=== PATIENT | female | born 1940 | race Caucasian/White ===

== ENCOUNTER 2020-08-05 13:20 | Outpatient (CLI) | payer OTHER | END 2020-08-05 13:22 | disposition home or self-care (01) | LOC: NUCLEAR 13:20 | PROVIDERS: ATTEND Orthopaedic Surgery | DX: M81.0 Age-related osteoporosis without current pathological fracture (principal) ==

== ENCOUNTER 2020-09-09 11:15 | Outpatient (CLI) | payer OTHER | END 2020-09-09 11:16 | disposition home or self-care (01) | LOC: LAB 11:15 | PROVIDERS: ATTEND Orthopaedic Surgery | DX: E21.3 Hyperparathyroidism, unspecified (principal); M81.8 Other osteoporosis without current pathological fracture ==

== ENCOUNTER 2021-01-27 09:02 | Outpatient (CLI) | payer OTHER | END 2021-01-27 09:05 | disposition home or self-care (01) | LOC: NUCLEAR 09:02 | PROVIDERS: ATTEND Internal Medicine Cardiovascular Disease | DX: I20.1 Angina pectoris with documented spasm (principal) | CPT/HCPCS: 78452; 93017; A9500; J0153 ==

== ENCOUNTER 2021-08-24 08:00 | Outpatient (CLI) | payer OTHER | END 2021-08-24 08:30 | disposition home or self-care (01) | LOC: PPH VACUNA 08:00 | PROVIDERS: ATTEND Emergency Medicine Pediatric Emergency Medicine | DX: Z23 Encounter for immunization (principal) ==

== ENCOUNTER 2021-08-24 10:06 | Outpatient (CLI) | payer OTHER | END 2021-08-24 10:15 | disposition home or self-care (01) | LOC: MAMO-SONO 10:06 | PROVIDERS: ATTEND Family Medicine | DX: Z12.39 Encounter for other screening for malignant neoplasm of breast (principal); N64.4 Mastodynia ==

== ENCOUNTER 2023-04-28 08:29 | Outpatient (CLI) | payer OTHER ==
[2023-04-28 10:39] LABS: ALBUMIN 3.7 gm/dL (3.4-5.0); BILIRUBIN TOTAL 0.57 mg/dL (0.3-1.2); CALCIUM 9.1 mg/dL (8.5-10.1); CREATININE SERUM 0.93 mg/dL (0.55-1.02); GFR 57.86; GLOBULINA 2.9 G/DL (2.4-3.5); MAGNESIUM 2.1 mg/dL (1.8-2.4); PHOSPHOROUS 3.4 mg/dL (2.5-4.9); POTASSIUM 4.13 mEq/L (3.5-5.1); TOTAL PROTEIN 6.6 gm/dL (6.4-8.2)
== END 2023-04-28 08:30 | disposition home or self-care (01) ==
LOC: LAB 08:29
PROVIDERS: ATTEND Orthopaedic Surgery
DX: M85.9 Disorder of bone density and structure, unspecified (principal); E83.42 Hypomagnesemia; E56.1 Deficiency of vitamin K; E88.89 Other specified metabolic disorders; M81.8 Other osteoporosis without current pathological fracture

== ENCOUNTER 2023-07-05 07:49 | Outpatient (CLI) | payer OTHER | END 2023-07-05 07:50 | disposition home or self-care (01) | LOC: NUCLEAR 07:49 | DX: I73.9 Peripheral vascular disease, unspecified (principal); I87.2 Venous insufficiency (chronic) (peripheral) ==

== ENCOUNTER 2023-07-10 08:18 | Outpatient (CLI) | payer OTHER | END 2023-07-10 08:19 | disposition home or self-care (01) | LOC: NUCLEAR 08:18 | PROVIDERS: ATTEND Specialist | DX: I73.9 Peripheral vascular disease, unspecified (principal); I87.2 Venous insufficiency (chronic) (peripheral) ==

== ENCOUNTER 2023-07-10 10:05 | Outpatient (CLI) | payer OTHER | END 2023-07-10 10:11 | disposition home or self-care (01) | LOC: RAD 10:05 | PROVIDERS: ATTEND Orthopaedic Surgery | DX: M25.571 Pain in right ankle and joints of right foot (principal); M79.671 Pain in right foot ==

== ENCOUNTER 2023-08-21 10:44 | Outpatient (CLI) | payer OTHER | END 2023-08-21 11:03 | disposition home or self-care (01) | LOC: TOM 10:44 | PROVIDERS: ATTEND Specialist | DX: I12.9 Hypertensive chronic kidney disease with stage 1 through stage 4 chronic kidney disease, or unspecified chronic kidney disease (principal) ==

== ENCOUNTER → 2024-01-31 09:33 | Outpatient (CLI) | payer OTHER ==
[~2024-01-31 09:33] MED LIST: ATORVASTATIN CA40 MG PO; BRILINTA60 MG PO; METOPROLOL SUCC25 MG PO; TRAZODONE HCL50 MG PO
== END | disposition home or self-care (01) ==
LOC: NUCLEAR 09:33
PROVIDERS: ATTEND Specialist
DX: I73.9 Peripheral vascular disease, unspecified (principal); I87.2 Venous insufficiency (chronic) (peripheral)

== ENCOUNTER 2024-02-01 10:08 | Outpatient (CLI) | payer OTHER | END 2024-02-01 10:09 | disposition home or self-care (01) | LOC: NUCLEAR 10:08 | PROVIDERS: ATTEND Specialist | DX: I73.9 Peripheral vascular disease, unspecified (principal); I87.2 Venous insufficiency (chronic) (peripheral) ==

== ENCOUNTER 2024-06-25 12:57 | Outpatient (CLI) | payer OTHER | END 2024-06-25 13:01 | disposition home or self-care (01) | LOC: SONOGRAMA 12:57 | PROVIDERS: ATTEND Internal Medicine | DX: N18.31 Chronic kidney disease, stage 3a (principal); E03.8 Other specified hypothyroidism; E04.1 Nontoxic single thyroid nodule ==

== ENCOUNTER → 2024-06-25 14:08 | Outpatient (CLI) | payer OTHER ==
[2024-06-25 15:45] LABS: CREATININE URINE RANDOM 38.8 MG/DL (30-125)
== END | disposition home or self-care (01) ==
LOC: LAB 14:08
PROVIDERS: ATTEND Internal Medicine
DX: N18.30 Chronic kidney disease, stage 3 unspecified (principal)

== ENCOUNTER → 2024-06-27 09:18 | Outpatient (CLI) | payer OTHER ==
[2024-06-27 10:40] LABS: URINE PROT QUANT 24HR < 5.00 MG/DL
[2024-06-27 10:45] LABS: URINE PROT QUANT 24 HR 84.75 MG/24HR (42-225)
[2024-06-27 10:56] LABS: CREATINE CLEARANCE 43.1 ML/MIN (97-137); CREATININE SERUM 0.93 mg/dL (0.6-1.0)
== END | disposition home or self-care (01) ==
LOC: LAB 09:18
PROVIDERS: ATTEND Internal Medicine
DX: N18.30 Chronic kidney disease, stage 3 unspecified (principal)

== ENCOUNTER 2025-01-06 08:57 | Outpatient (CLI) | payer OTHER | END 2025-01-06 08:58 | disposition home or self-care (01) | LOC: NUCLEAR 08:57 | PROVIDERS: ATTEND Internal Medicine | DX: I87.2 Venous insufficiency (chronic) (peripheral) (principal) ==

== ENCOUNTER 2025-04-02 14:46 | Outpatient (CLI) | payer OTHER | END 2025-04-02 14:50 | disposition home or self-care (01) | LOC: RAD 14:46 | PROVIDERS: ATTEND Internal Medicine | DX: M54.2 Cervicalgia (principal); M54.6 Pain in thoracic spine; M54.17 Radiculopathy, lumbosacral region ==

== ENCOUNTER 2025-05-04 14:16 | Outpatient (CLI) | payer OTHER | END 2025-05-04 14:18 | disposition home or self-care (01) | LOC: RAD 14:16 | PROVIDERS: ATTEND Internal Medicine | DX: J44.9 Chronic obstructive pulmonary disease, unspecified (principal) ==